=== PATIENT | male | born 1960 | race Two or more races ===

== ENCOUNTER 2017-08-05 06:32 | Day surgery (SDC) | payer BC ==
[2017-07-28 13:43] VITALS: BMI 26.2
[~2017-08-05 06:32] MED LIST: DEXAMETHASONE SOD PHOSPHATE 10 MG/ML 1 ML VIAL IV ONE; HEPARIN SODIUM,PORCINE 5,000 UNIT/ML 1 ML VIAL SQ ONE; HYDROmorphone 1 MG/ML 1 ML SYRINGE IVP PRN; LIDOCAINE 1% 20 ML VIAL (10MG/ML) FOR IV START INTRADERMA PRN; MIDAZOLAM 2 MG/2 ML VIAL IV PRN; ONDANSETRON 4 MG/2 ML VIAL IVP ONE; SCOPOLAMINE 1.5MG/72HR PATCH TRANSDERM ONE; ceFAZolin 2 GM in SODIUM CHLORIDE 0.9% 100 ML IVPB ONE
[2017-08-05 06:50] VITALS: RESP 16
[2017-08-05] MEDS: LACTATED RINGERS 1,000 ML IV SCH ×2 (07:01→07:05)
[2017-08-05] MEDS ORDERED: NEOSTIGMINE 1 MG/ML 10 ML VIAL ONE (07:37)
[2017-08-05] MEDS ORDERED: LIDOCAINE 1% INJ 10MG/ML (20 ML MDV) ONE (07:37)
[2017-08-05] MEDS ORDERED: fentaNYL (PF) 50 MCG/ML 2 ML AMP ONE (07:37)
[2017-08-05] MEDS ORDERED: SUCCINYLCHOLINE CHLORIDE 100 MG/5 ML SYR IV ONE (07:37)
[2017-08-05] MEDS ORDERED: KETOROLAC 30 MG/ML 1 ML VIAL ONE (07:37)
[2017-08-05] MEDS ORDERED: ROCURONIUM BROMIDE 10 MG/ML 10 ML VIAL IV ONE (07:37)
[2017-08-05] MEDS ORDERED: GLYCOPYRROLATE 0.2 MG/ML 2 ML VIAL ONE ×2 (07:37)
[2017-08-05] MEDS ORDERED: PROPOFOL 10 MG/ML 20 ML VIAL IV ONE (07:37)
[2017-08-05] MEDS ORDERED: HYDROmorphone (PF) 1 MG/ML ONE (07:37)
[2017-08-05] MEDS ORDERED: MIDAZOLAM 2 MG/2 ML VIAL ONE (07:37)
[2017-08-05] MEDS ORDERED: BUPIVACAINE-EPI 0.5%-1:200,000 10 ML VIAL SQ ONE (08:35)
--- NOTE | 2017-08-05 09:42 | P.OP ---
Date of Procedure: 08/05/17 Preoperative Diagnosis: Right inguinal hernia Postoperative Diagnosis: Right indirect inguinal hernia Procedure(s) Performed: Robot assisted laparoscopic right inguinal hernia with mesh Implants: 10 x 15 bard progrip mesh Anesthesia: ALICE Surgeon: Ivan Zhang Pathology: none sent Condition: stable Disposition: PACU Indications for Procedure: Operative Findings: right indirect inguinal hernia Description of Procedure: Informed consent was obtained patient and then The patient was brought to the operating room and placed in supine position. General anesthesia with endotracheal intubation was performed as per anesthesia team. Chlorhexidine was used to prep the skin followed by application of sterile drapes . He was placed in the lithotomy position. A timeout was performed to verify correct patient, correct procedure and correct side. Patient was confirmed to receive perioperative IV antibiotics, subcutaneous heparin 5000 units and bilateral SCDs were placed. The left upper quadrant point was identified and a stab incision was made. Veress needle was introduced and placement was confirmed with the help of the drop test. The abdomen was then insufflated to 15 mmHg. Once that was done 5 mm port was introduced into the left upper quadrant using the Optiview technique after which a 12 mm port was placed in the supraumbilical position and a 8 mm port in the right lower quadrant and then after that the left-sided 5 mm port was replaced with a robot 8 mm port under direct vision. The robot was then docked with the central camera port and the 2 side working ports. After introducing hte instruments, the median umbilical fold was retracted laterally towards the left side a small incision was made at the junction of the umbilical fold and the peritoneum and carried all the way laterally thus creating a small plane in the preperitoneal space. This did this was further dissected with the help of blunt dissection using gentle stroking maneuvers all the way down to Matt ligament medially and laterally we went inferior exposing the vessels inferiorly. The vas was identified and the hernia sac was teased off of the spermatic cord gently with the help of blunt dissection and once it was taken off and was major that was reduced [employer] chemical technician mesh was introduced in the abdominal cavity with the lower part above the level of the peritoneal fold was then unfolded so that it covered all the orifices and covered the Matt's ligament medially once again pain positioned perfectly to seal was applied to the inferior edge of the mesh as well as around the Matt's ligament after which the peritoneal flaps were closed with the help of running 2 0 V lock suture once that was done procedure was completed all incisions and camera was removed and a laparoscope was introduced and the 12 mm port site was closed with the help of a Jose Cruz the direct vision after which gas was turned off abdomen was thoroughly desufflated skins was closed with the help of 4-0 Monocryl and Dermabond. the patient was extubated and taken to recovery room in stable condition patient tolerated the procedure well there were no complications
[2017-08-05 09:46] VITALS: TEMP 97.4
[2017-08-05 13:01] VITALS: BP 154/76; PULSE 62
== END 2017-08-05 13:51 | disposition home or self-care (01) ==
LOC: OR 06:32
PROVIDERS: ATTEND Surgery
DX: K40.90 Unilateral inguinal hernia, without obstruction or gangrene, not specified as recurrent (principal); K21.9 Gastro-esophageal reflux disease without esophagitis; E78.5 Hyperlipidemia, unspecified; Z79.899 Other long term (current) drug therapy
CPT/HCPCS: 49650; C1781; J2250; J1644; J1100; J2710; J0690; J2405; J2001; J3010; J1885; J1170; J0330; J2704